=== PATIENT | female | born 1985 ===

== ENCOUNTER → 2024-02-14 | Emergency (ER) | payer BC ==
[~2024-02-14] MED LIST: Albumin 25% 100 ML ONE; Albuterol 2.5 MG (3 mL) NEB ONE; Budesonide 0.5 MG/2 ML NEB ONE; CALCIUM GLUC 1 GM/NS 50 ML IV Bag ONE; Calcium Gluc 4.6 MEQ/10 ML (100 MG/ML) ONE; Cefepime 1 GM VIAL ONE; Fentanyl CADD 100 ML IV SCH; Furosemide 40 MG (4 mL) VIAL ONE; Glycopyrrolate 0.4 MG/ 2 ML VIAL IM SCH; Hydrocortisone Sod Succ/PF 100 mg/2 ml Vial ONE; KETAMINE 100 MG/ML (5ML VIAL) ONE; Magnesium 2 GM/50 ML BAG (IN WATER) ONE; NOREPINEPHRINE 8 MG/250 ML-D5W 250 ML ONE; Pantoprazole 40 MG VIAL ONE; Potassium Chloride 20 MEQ (100 mL) BAG ONE; Sodium Chloride 0.9% 100 ML ONE; Vancomycin (BATCH) 1.25 GM in Premix 1 BAG IVPB SCH; Vasopressin 20 UNITS/ML VIAL ONE; diphenhydrAMINE 50 MG/ML VIAL ONE
[2024-02-14 08:12] LABS: Actual Bicarbonate (HCO3v) 17.2 mEq/L (22-28); Analyzer IN Cardio ER; Base Excess -6.4 mEq/L (-2.0 to +3.0); Calcium, Ionized (venous) 0.95 mmol/L (1.16-1.32); Chloride (VBG) 103 mmol/L (98-106); Hematocrit-VBG 21 % (36.0-47.0); Hemoglobin (Hb) 7.1 g/dL (11.7-15.5); Potassium (VBG) 2.97 mmol/L (3.70-5.30); Sodium 128 mmol/L (133-146); pH (venous) 7.424 (7.32-7.43)
[2024-02-14 08:25] LABS: INR-International Normal Ratio 1.2; Prothrombin Time 15.6 sec (12.0-14.7)
[2024-02-14 08:26] LABS: PTT 29.9 sec (22.9-36.1)
[2024-02-14 08:34] LABS: Troponin I 0.031 ng/mL (< 0.028)
[2024-02-14 08:37] LABS: ALT (SGPT) 439 U/L (8-55); AST (SGOT) 216 U/L (5-34); Albumin 1.9 g/dL (3.5-5.0); Alkaline Phosphatase 252 U/L (40-110); Anion Gap 12 mmol/L (10-20); BUN (Urea Nitrogen) 39 mg/dL (7.0-18.7); Bilirubin, Total 0.5 mg/dL (0.2-1.2); Calc. Creatinine Clearance 0 mL/min (70-130); Calcium 6.6 mg/dL (7.8-10.44); Carbon Dioxide 16 mmol/L (22-29); Chloride 107 mmol/L (98-107); Estimated GFR 34; Globulin 1.6 g/dL (2.4-3.5); Glucose 163 mg/dL (70-105); Magnesium 1.1 mg/dL (1.6-2.6); Potassium 2.9 mmol/L (3.5-5.1); Protein, Total 3.5 g/dL (6.0-8.3); Sodium 132 mmol/L (136-145)
[2024-02-14 09:25] LABS: Red Blood Cell (RBC) Count 2.43 mill/uL (4.20-5.40)
[2024-02-14 09:26] LABS: Hematocrit 22.6 % (36.0-47.0); Hemoglobin 7.7 g/dL (12.0-16.0); Mean Corpuscular HGB CONC 34.1 g/dL (32.0-36.0); Mean Corpuscular Hemoglobin 31.7 pg (27.0-31.0); Platelet Count 20 10x3/uL (130-400); RBC Distribution Width 17.1 % (11.5-14.5)
[2024-02-14 10:02] LABS: Anisocytosis SLIGHT = 6-15 cells HPF (0-5); Band 14 % (5-11); Hypochromia SLIGHT = 6-15 cells HPF (0-5); Large Platelets 14.3 % (0-5); Lymphocytes 71 % (21-51); Neutrophil 14 % (42-75); Nucleated RBC (Manual Ct) 71 % (0); Platelet Adequacy Comment Significant Decrease; Poikilocytosis SLIGHT = 6-15 cells HPF (0-5); Polychromasia SLIGHT = 2-3 cells HPF (0-2)
[2024-02-14 10:31] LABS: Actual Bicarbonate (HCO3a) 18.5 mEq/L (22-28); Analyzer IN Cardio ER; Base Excess (BEa) -13.1 mEq/L (-2.0 to +3.0); Hematocrit-ABG 44 % (36.0-47.0); Hemoglobin (Hb) 14.8 g/dL (12.0-16.0); Potassium - ABG Lab 4.15 mmol/L (3.70-5.30)
[2024-02-14 10:43] LABS: CO2 Tension 69.4 mmHg (35.0-45.0); pH, Arterial 7.044 (7.35-7.45)
[2024-02-14 10:44] LABS: Puncture Site Right Radial artery
[2024-02-14 11:04] LABS: Bilirubin Negative (Negative); Blood, Urine 1+ (Negative); CAUTI Indications for Culture Immunosuppressed; Clarity Turbid (Clear); Glucose, Urine (Dipstick) Normal (Negative); Ketone, Urine Negative (Negative); Leukocyte Negative Leu/uL (Negative); Nitrite Negative (Negative); Protein, Urine (Dipstick) 100 mg/dL (Neg-Trace); RBC/HPF 0-3 HPF (0-3); Specific Gravity, Urine 1.007 (1.002-1.036); Squamous Epithelial 0-3 HPF (0-3); Urobilinogen Normal mg/dL (Less than 2); WBC/HPF 0-3 HPF (0-3); pH, Urine 5.5 (5.0-9.0)
[2024-02-14 11:06] LABS: Bacteria/HPF 1+ HPF (None Seen)
[2024-02-14 11:08] LABS: Urine Culture Reflex Yes Yes
[2024-02-14 11:12] LABS: Lactic Acid 2.38 mmol/L (0.5-2.2)
[2024-02-14 11:32] LABS: Hematocrit 41.8 % (36.0-47.0); Hemoglobin 13.9 g/dL (12.0-16.0)
[2024-02-14 11:44] LABS: Actual Bicarbonate (HCO3a) 21.7 mEq/L (22-28); Analyzer IN Cardio ER; Base Excess (BEa) -4.2 mEq/L (-2.0 to +3.0); CO2 Tension 42.8 mmHg (35.0-45.0); Calcium, Ionized (arterial) 1.41 mmol/L (1.12-1.30); Carboxyhemoglobin (COHb) 1.1 gm% (0.0-3.0); Hematocrit-ABG 40 % (36.0-47.0); Hemoglobin (Hb) 13.6 g/dL (12.0-16.0); pH, Arterial 7.323 (7.35-7.45)
[2024-02-14 11:56] LABS: O2 Tension (PaO2), arterial 46.4 mmHg (80.0-100.0); Puncture Site ART LINE
== END ==
LOC: ERS 07:30
DX: J96.91 Respiratory failure, unspecified with hypoxia (principal); E83.51 Hypocalcemia; E87.6 Hypokalemia; R57.9 Shock, unspecified; E83.42 Hypomagnesemia; D61.818 Other pancytopenia
CPT/HCPCS: 31500; 36415; 36430; 36556; 36600; 36620; 51702; 71045; 80053; 81001; 82274; 82805; 83605; 83735; 83880; 84484; 85025; 85610; 85730; 86850; 86900; 86901; 87040; 87086; 87428; 93005; 94760; 96365; 96366; 96368; 96372; 96375; 96376; 99292; J0612; J0613; J0692; J1200; J1720; J1940; J2470; J3010; J3370; J3475; J3480; J7611; J7626; P9016; P9035; P9047; P9048; P9059